=== PATIENT | female | born 1960 | race Caucasian/White ===

== ENCOUNTER 2016-07-13 10:26 | Outpatient (CLI) | payer OTHER ==
[2016-07-13 10:55] LABS: Bilirubin Negative (Negative); Blood, Urine Negative (Negative); Clarity Clear (Clear); Glucose, Urine (Dipstick) Negative (Negative); Leukocyte Negative (Negative); Nitrite Negative (Negative); Protein, Urine (Dipstick) Negative (Neg-Trace); Specific Gravity, Urine 1.025 (1.005-1.030); Urobilinogen 0.2 mg/dL (0.2-1.0)
[2016-07-13 11:02] LABS: RBC/HPF 0-3 HPF (0-3); WBC/HPF 0-3 HPF (0-3)
[2016-07-13 11:05] LABS: #Basophils 0.1 thou/uL (0.0-0.2); #Eosinphils 0.2 thou/uL (0.0-0.7); #Monocytes 0.3 thou/uL (0.11-0.59); #Neutrophils 2.3 thou/uL (1.40-6.50); %Basophils 1.3 % (0.0-1.0); %Eosinophils 4.2 % (0.0-10.0); %Lymphocytes 26.4 % (21.0-51.0); %Monocytes 8.4 % (0.0-10.0); %Neutrophils 59.7 % (42.0-75.0); Hemoglobin 14.8 g/dL (12.0-16.0); Mean Corpuscular HGB CONC 33.4 g/dL (32.0-36.0); Mean Corpuscular Hemoglobin 29.7 pg (27.0-31.0); Mean Corpuscular Volume 88.9 fl (81.0-99.0); Mean Platelet Volume 7.2 fL (7.4-10.4); Platelet Count 241 thou/uL (130-400); RBC Distribution Width 11.7 % (11.5-14.5); Red Blood Cell (RBC) Count 4.97 mill/uL (4.20-5.40); White Blood Cell (WBC) Count 3.9 thou/uL (4.8-10.8)
[2016-07-13 11:06] LABS: Hemoglobin A1c 5.2 % (4.0-6.0)
[2016-07-13 11:21] LABS: ALT (SGPT) 36 U/L (0-55); AST (SGOT) 22 U/L (5-34); Albumin 4.3 g/dL (3.5-5.0); Alkaline Phosphatase 45 U/L (40-150); Anion Gap 14 mmol/L (10-20); BUN (Urea Nitrogen) 13 mg/dL (9.8-20.1); Bilirubin, Total 0.3 mg/dL (0.2-1.2); Calc. Creatinine Clearance 0 mL/min (70-130); Calcium 9.5 mg/dL (7.8-10.44); Carbon Dioxide 27 mmol/L (22-29); Cardiac Risk 3.5 (Less than 4.5); Chloride 103 mmol/L (98-107); Cholesterol 225 mg/dL (< 200 Desired); Estimated GFR-MDRD 87; Globulin 3.2 g/dL (2.4-3.5); Glucose 87 mg/dL (70-105); HDL Cholesterol 64 mg/dL (>60 Neg Risk); LDL Cholesterol, Calculated 107 mg/dL; Potassium 4.1 mmol/L (3.5-5.1); Protein, Total 7.5 g/dL (6.0-8.3); Sodium 140 mmol/L (136-145); Triglycerides 270 mg/dL (Less than 150)
[2016-07-13 11:33] LABS: Free T4 (Free Thyroxine) 0.82 ng/dL (0.70-1.48); Thyroid Stimulating Hormone 1.137 uIU/mL (0.35-4.94)
== END 2016-07-13 10:27 ==
LOC: MADLABBHPM 10:26
PROVIDERS: ATTEND Family Medicine
DX: R63.5 Abnormal weight gain (principal); R10.13 Epigastric pain; R35.0 Frequency of micturition
CPT/HCPCS: 36415; 80053; 80061; 81001; 83036; 84439; 84443; 85025; 86677; 87086

== ENCOUNTER 2018-12-29 11:03 | Outpatient (CLI) | payer OTHER ==
--- NOTE | 2018-12-29 11:31 | RAD ---
RIGHT HIP TWO VIEWS: HISTORY: Right hip pain. FINDINGS: Joint space is well preserved. There are no signs of fracture. The symphysis region shows minimal a rthritic change. IMPRESSION: Unremarkable right hip. POS: CET
--- NOTE | 2018-12-29 12:35 | RAD ---
CERVICAL SPINE THREE VIEWS: HISTORY: Acute neck pain. COMPARISON: None. FINDINGS: Three views of the cervical spine show normal height and alignment of the vertebral bodies without fr acture or subluxation. The intervertebral disks are narrowed in the lower cervical spine with small surrounding osteophytes. No prevertebral soft tissue swelling is seen. IMPRESSION: Degenerative changes of the lower cervical spine without acute osseous abnormality. POS: EU[facility]
== END 2018-12-29 11:04 | disposition home or self-care (01) ==
LOC: MADRAD 11:03
PROVIDERS: ATTEND Family Medicine
DX: M25.551 Pain in right hip (principal); M54.2 Cervicalgia; M47.812 Spondylosis without myelopathy or radiculopathy, cervical region
CPT/HCPCS: 72040

== ENCOUNTER 2019-10-09 09:15 | Outpatient (CLI) | payer BC, OTHER ==
[2019-10-09 09:56] LABS: ALT (SGPT) 29 U/L (8-55); AST (SGOT) 20 U/L (5-34); Albumin 4.3 g/dL (3.5-5.0); Alkaline Phosphatase 46 U/L (40-110); Anion Gap 14 mmol/L (10-20); BUN (Urea Nitrogen) 14 mg/dL (9.8-20.1); Bilirubin, Total 0.4 mg/dL (0.2-1.2); Calc. Creatinine Clearance 0 mL/min (70-130); Calcium 9.4 mg/dL (7.8-10.44); Carbon Dioxide 26 mmol/L (22-29); Chloride 104 mmol/L (98-107); Estimated GFR-MDRD 76; Glucose 94 mg/dL (70-105); Potassium 4.2 mmol/L (3.5-5.1); Protein, Total 7.3 g/dL (6.0-8.3); Sodium 140 mmol/L (136-145)
[2019-10-09 10:03] LABS: CKMB 0.5 ng/mL (0-6.6)
[2019-10-09 10:15] LABS: Thyroid Stimulating Hormone 1.3118 uIU/mL (0.35-4.94)
[2019-10-09 18:13] LABS: Free T4 (Free Thyroxine) 0.84 ng/dL (0.70-1.48)
== END 2019-10-09 09:16 ==
LOC: MADLABBHPM 09:15
PROVIDERS: ATTEND Family Medicine
DX: R07.89 Other chest pain (principal); R79.89 Other specified abnormal findings of blood chemistry
CPT/HCPCS: 36415; 80053; 82553; 84439; 84443; 84481; 84484; 93005; 93010

== ENCOUNTER 2023-11-17 12:10 | Outpatient (CLI) | payer OTHER | END 2023-11-17 12:11 | disposition home or self-care (01) | LOC: MADRAD 12:10 | PROVIDERS: ATTEND Registered Nurse | DX: M25.572 Pain in left ankle and joints of left foot (principal); Z91.81 History of falling; S82.832A Other fracture of upper and lower end of left fibula, initial encounter for closed fracture ==